=== PATIENT | female | born 1945 | race Caucasian/White ===

== ENCOUNTER 2019-02-20 11:20 | Emergency (ER) | payer MEDICARE ==
--- NOTE | 2019-02-20 11:31 | ED Physician Documentation ---
Neuro Symptoms - HISTORIAN Historian: child (Daughter) - HPI Chief Complaint: Neurological Deficits Additional Information: 73 year old female presents to the ER via w/c- daughter Sofía states that they were going through the drive thru at [place] around 11:00 when Sofía noticed that patient was not able to use her right arm; patient is alert but does not know what day it is, month, time, or president. She is only able to give me her first and last name. Blood sugar was 75. Patient straight to CT before being placed in room. Patient arrived to ER at 11:20 Onset: minutes Timing: sudden onset Last known Well Date: 02/20/19 Last Known Well Time: 11:00 Last known Well Code/Unknown Code: Known Severity: moderate Context: denies: falling injury, head injury - CHARACTERS OF DEFICIT New Weakness: RUE Altered Sensation: RUE Vision Problems: No Impaired Speech/ Swallowing: Yes Decreased Ability: walk Cognition is Usually: alert, disoriented (time) Gait is Usually: walks w/o assistance Associated Symptoms: disoriented, trouble concentrating - ROS MENTAL STATUS: none CVS/Resp Upper Extremity Problem: none GI/ DYSPNEA: none MS/SKIN/LYMPH: none Neuro/Psych: none (had a "migraine" 2 weeks ago) - PAST HX Past History: other (hypothyroid disorder; hypercholestremia) Other History: hyperlipidemia Surgeries/Procedures: none Immunizations: UTD Allergies/Adverse Reactions: Allergies Allergy/AdvReac Type Severity Reaction Status Date / Time No Known Allergies Allergy Verified 02/20/19 11:43 - FAMILY HX Family History: none - SOCIAL HX Smoking History: non-smoker Alcohol Use: none Drug Use: none - VITAL SIGNS Vital Signs: Vital Signs Temp Pulse Resp BP Pulse Ox 97.4 F L 79 16 157/85 97 02/20/19 12:35 02/20/19 12:35 02/20/19 12:35 02/20/19 12:35 02/20/19 12:35 - REVIEWED ASSESSMENTS Nursing Assessment Reviewed: Yes Vitals Reviewed: Yes Progress - Progress Progress: 11:[address] Sp[address] [place] [address] Dr[address] Garcia and he has accepted. Once we get platelets back we will initiate TPA. 12:08 Platelets 218 and PT 9.9 Will move forward with TPA with 5mg bolus over 1 minute and 45 mg over 60 min. ED Results Lab/Radiology - Lab Results Lab Results: Lab Results 02/20/19 02/20/19 02/20/19 11:56 11:56 11:56 WBC 5.40 K/ul K/ul (4.00-12.00) RBC 4.92 M/ul M/ul (3.90-5.20) Hgb 14.5 g/dL g/dL (11.5-16.0) Hct 43.3 % % (34.5-46.5) MCV 88.0 fl fl (80.0-100.0) MCH 29.5 pg pg (28.0-34.0) MCHC 33.5 g/dL g/dL (30.0-36.0) RDW 11.3 % % (11.3-14.3) Plt Count 218 K/mm3 K/mm3 (130-400) Neut % (Auto) 70.7 % % (39.0-79.0) Lymph % (Auto) 19.5 % % (16.0-50.0) [place] % (Auto) 6.7 % % (0.0-11.0) Eos % (Auto) 2.9 % % (0.0-6.8) Baso % (Auto) 0.2 % % (0.0-1.5) Neut # (Auto) 3.8 # k/uL # k/uL (1.4-7.7) Lymph # (Auto) 1.1 # k/uL # k/uL (0.6-4.0) [place] # (Auto) 0.4 # k/uL # k/uL (0.0-0.9) Eos # (Auto) 0.2 # k/uL # k/uL (0.0-0.6) Baso # (Auto) 0.0 # k/uL # k/uL (0.0-0.5) PT 9.9 Seconds Seconds (8.8-11.9) INR 0.95 (0.80-1.10) Sodium 140 mmol/L mmol/L (137-145) Potassium 4.2 mmol/L mmol/L (3.5-5.1) Chloride 105 mmol/L mmol/L (98-107) Carbon Dioxide 26 mmol/L mmol/L (22-30) Anion Gap 13.2 BUN 22 mg/dL H mg/dL (7-17) Creatinine 0.62 mg/dL mg/dL (0.52-1.04) Estimated Creat Clear 84 Est GFR ( Amer) > 60 (60 - ) Est GFR (Non-Af Amer) > 60 (60 - ) Glucose 96 mg/dL mg/dL (74-106) Calcium 9.6 mg/dL mg/dL (8.4-10.2) Total Bilirubin 1.1 mg/dL mg/dL (0.2-1.3) AST 46 U/L U/L (15-46) ALT 31 U/L U/L (0-35) Alkaline Phosphatase 197 U/L H U/L (38-126) Creatine Kinase 43 U/L U/L (30-135) CK-MB (CK-2) 1.7 ng/mL ng/mL (0.0-5.6) Troponin I < 0.012 ng/mL L ng/mL (0.012-0.034) Total Protein 7.4 g/dL g/dL (6.3-8.2) Albumin 4.2 g/dL g/dL (3.5-5.0) - Radiology Radiology Impressions: CLINICAL HISTORY: weakness,possible stroke (Hx) / ITS.REASON^possible stroke (DICOM Hx) TECHNIQUE: 5 mm contiguous axial images of the brain, noncontrast. FINDINGS: There is no evidence of intracranial mass effect, hemorrhage, or acute hydrocephalus. The lateral ventricles are symmetrical and the 4th ventricle is midline without shift. No acute brain parenchymal changes or extra-axial fluid collections are identified. The posterior fossa contents are within normal limits. The calvarium is intact. The visualized sinuses and mastoid air cells are clear. IMPRESSION: No acute intracranial process. Electronically signed by: Dr. Fede Hernandez - Orders Orders: ED Orders Category Date Time Status Continuous EKG monitoring Q30M Care 02/20/19 11:22 Active Continuous Pulse Oximetry Q30M Care 02/20/19 11:[address] IV Lock 1T Care 02/20/19 11:[address] BRAIN W/O CONTRAST Stat Exams 02/20/19 Completed CBC/PLATELET/DIFF Stat Lab 02/20/19 11:56 Completed CKMB Stat Lab 02/20/19 11:56 Completed CMP Stat Lab 02/20/19 11:56 Completed CREATINE KINASE Stat Lab 02/20/19 11:56 Completed PT-INR Routine Lab 02/20/19 11:56 Completed TROPONIN I Stat Lab 02/20/19 11:56 Completed 0.9 % Sodium Chloride [Normal Saline] 1,000 ml Med 02/20/19 12:00 Ordered IV Q10H 0.9 % Sodium Chloride [Normal Saline] 50 ml Med 02/20/19 11:46 Discontinued IV .STK-MED Alteplase [Activase] Med 02/20/19 11:47 Discontinued 5 mg IV NOW ONE Alteplase [Activase] 50 ml Med 02/20/19 11:42 Discontinued IV .STK-MED Chem Sticks Med 02/20/19 11:23 Discontinued 1 each MC NOW ONE EKG WITH COMPARISON Stat Ther 02/20/19 11:22 Ordered Neuro Symptoms Physical Exam - Physical Exam General Appearance: alert, mild distress HEENT: no apparent trauma, PERRL Neuro/Psych: alert, abnml respond to command, inappropriate respond Pheripheral Exam: sensation nml, weakness, abnml movements Neck: normal inspection, supple Respiratory: no resp distress CVS: heart sounds normal, equal pulses Abdomen: non-tender Skin: color nml Discharge Clincal Impression: Stroke Referrals: Primary Doctor,No [Primary Care Provider] - 2 Days Condition: Stable Disposition: 02 XFER [facility]M HOSP Decision to Admit: NO Decision Time: 12:30
--- NOTE | 2019-02-20 11:37 | Diagnostic Imaging Report ---
PATIENT MR#: [id number] PATIENT PATIENT NAME: KLAUDIA LAWRENCE DATE OF : 1945 REFERRING PHYSICIAN: Bing Acuna EXAM DATE: 02/20/2019 ACCESSION NUMBER: [id number] EXAM DESCRIPTION: CT BRAIN W/O CONTRAST CT brain noncontrast Date of study: February 20, 2019 TECHNIQUE: 5 mm contiguous axial images of the brain, noncontrast. FINDINGS: There is no evidence of intracranial mass effect, hemorrhage, or acute hydrocephalus. The lateral jessica tricles are symmetrical and the 4th ventricle is midline without shift. No acute brain parenchymal changes or ext ra-axial fluid collections are identified. The posterior fossa contents are within normal limits. The calvarium is intact. The visualized sinuses and mastoid air cells are clear. IMPRESSION: No acute intracranial process. Read by: Dr. Fede Hernandez Transcribed by: Transcribed Date: Electronically signed by: Dr. Fede Hernandez Date signed: 02/20/2019 11:36:13 AM
[2019-02-20] MEDS ORDERED: ALTEPLASE 50 ML IV ONE (11:42)
[2019-02-20] MEDS ORDERED: 0.9 % SODIUM CHLORIDE 50 ML IV ONE (11:46)
[2019-02-20] MEDS ORDERED: ALTEPLASE 50 MG/50 ML VIAL IV ONE (11:47)
[2019-02-20] MEDS ORDERED: 0.9 % SODIUM CHLORIDE 1,000 ML IV ONE (11:54)
[2019-02-20 12:00] LABS: BASOPHILS % 0.2 % (0.0-1.5); NEUTROPHILS # 3.8 # k/uL (1.4-7.7)
[2019-02-20] MEDS ORDERED: 0.9 % SODIUM CHLORIDE 1,000 ML IV SCH (12:00)
[2019-02-20 12:09] LABS: eGFR (Non-African) > 60
[2019-02-20 12:37] VITALS: BP 157/85
== END 2019-02-20 12:30 | disposition short-term general hospital (02) ==
LOC: ED 11:20
DX: I63.9 Cerebral infarction, unspecified (principal)
CPT/HCPCS: 70450; 80053; 82550; 82553; 84484; 85025; 85610; 93005; 96361; 96374; 99284; J2997; J7030; S1016